=== PATIENT | male | born 1990 | race Caucasian/White ===

== ENCOUNTER → 2023-06-28 | Outpatient (CLI) | payer OTHER ==
[~2023-06-28] MED LIST: CELEXA40 MG PO; CEPHALEXIN500 M1 PO; DESYREL 100MG100 MG PO; FLEXERIL 1010 MG/TAB PO; NAPROSYN500 MG PO; NORCO 325 MG-51 TAB PO; ROBAXIN 50500 MG/TAB PO; WELLBUTRIN SR150 M1
== END ==
LOC: MHCPAIN 14:42
DX: M47.817 Spondylosis without myelopathy or radiculopathy, lumbosacral region (principal); M48.061 Spinal stenosis, lumbar region without neurogenic claudication; M54.17 Radiculopathy, lumbosacral region
CPT/HCPCS: J1100; Q9967

== ENCOUNTER → 2023-07-17 | Outpatient (CLI) | payer OTHER | LOC: MHCPAIN 13:24 | DX: M47.897 Other spondylosis, lumbosacral region (principal); M54.16 Radiculopathy, lumbar region | CPT/HCPCS: G0463 ==

== ENCOUNTER → 2023-10-09 | Outpatient (CLI) | payer OTHER | LOC: MHCPAIN 14:29 | DX: M51.26 Other intervertebral disc displacement, lumbar region (principal); M47.816 Spondylosis without myelopathy or radiculopathy, lumbar region | CPT/HCPCS: G0463 ==